=== PATIENT | male | born 1970 | race African-American/Black ===

== ENCOUNTER 2020-07-01 17:08 | Emergency (ER) | payer OTHER ==
[~2020-07-01] VITALS: Ht 182.9 cm; Wt 91.0 kg
[2020-07-01] MEDS ORDERED: LIDOCAINE HCL/PF 1% 10 MG/ML 5ML VIAL IJ ONE (19:45)
[2020-07-01 21:53] VITALS: BP 134/78
== END 2020-07-01 21:54 | disposition home or self-care (01) ==
LOC: ER 17:08
DX: D17.79 Benign lipomatous neoplasm of other sites (principal); R56.9 Unspecified convulsions
CPT/HCPCS: 71250; 99284; J3490